=== PATIENT | female | born 2000 | race African-American/Black ===

== ENCOUNTER → 2025-03-26 | Outpatient (CLI) | payer MEDICAID ==
[2025-03-26 10:51] LABS: BASO # 0.1 10*3/uL (0.0-0.1); BASO % 0.5 % (0.0-1.0); EOS # 0.2 10*3/uL (0.0-0.4); EOS % 2.0 % (1.0-4.0); MEAN CELL VOLUME 90.4 fl (81.0-99.0); MEAN CORPUSCULAR HGB 29.7 pg (27.0-31.0); MEAN PLATELET VOLUME 9.6 fl (9.6-12.3); MONO # 0.7 10*3/uL (0.1-1.0); MONO % 5.8 % (3.0-9.0); NEUT # 8.0 10*3/uL (2.3-7.9); NEUT % 66.9 % (47.0-73.0); NUCLEATED RED BLOOD CELL 0.0 % (0.0-0.0); NUCLEATED RED BLOOD CELL 0.0 10*3/uL (0.0-0.0); PLATELET COUNT AUTOMATED 442 10*3/uL (130-400); RED CELL DISTRI WIDTH 12.7 % (0-14.5)
[2025-03-26 11:20] LABS: BUN 8 mg/dl (9-23); LDL CHOLESTEROL 74 mg/dL (9-159); SGPT/ALT 14 U/L (5-49); VITAMIN D, 25-HYDROXY 25.5 ng/mL (30-100)
[2025-03-27 05:06] LABS: HEPATITIS A AB, TOTAL Negative (Negative)
== END | disposition home or self-care (01) ==
LOC: LAB 10:11
PROVIDERS: ATTEND Registered Nurse
DX: Z13.220 Encounter for screening for lipoid disorders (principal); Z13.1 Encounter for screening for diabetes mellitus; Z11.59 Encounter for screening for other viral diseases; F19.20 Other psychoactive substance dependence, uncomplicated; Z91.419 Personal history of unspecified adult abuse